=== PATIENT | female | born 1950 | race Caucasian/White ===

== ENCOUNTER 2016-09-24 17:48 | Emergency (ER) | payer MEDICARE, OTHER | END 2016-09-24 21:42 | disposition home or self-care (01) | LOC: FER 17:48 | DX: M25.552 Pain in left hip (principal); M25.551 Pain in right hip; E11.9 Type 2 diabetes mellitus without complications; I10 Essential (primary) hypertension; J45.909 Unspecified asthma, uncomplicated; F41.9 Anxiety disorder, unspecified; F32.9 Major depressive disorder, single episode, unspecified; Z87.442 Personal history of urinary calculi; Z88.0 Allergy status to penicillin; Z88.2 Allergy status to sulfonamides; Z88.4 Allergy status to anesthetic agent; Z88.5 Allergy status to narcotic agent; Z90.49 Acquired absence of other specified parts of digestive tract; Z90.89 Acquired absence of other organs; Z98.890 Other specified postprocedural states; W17.89XA Other fall from one level to another, initial encounter; Y92.009 Unspecified place in unspecified non-institutional (private) residence as the place of occurrence of the external cause | CPT/HCPCS: 73522; J2175 ==

== ENCOUNTER 2016-12-30 04:17 | Emergency (ER) | payer MEDICARE, OTHER ==
[2016-12-30 05:26] LABS: BASOPHIL 0.2 % (0-2); EOSINOPHIL 0.7 % (0-7); HCT 40.1 % (37.0-47.0); HGB 14.1 g/dl (12.5-16.0); MCH 29.3 pg (25.0-31.0); MCHC 35.2 g/dL (32.0-36.0); MCV 83.2 fL (78.0-100.0); MONOCYTE 8.8 % (0-12); MPV 9.3 fL (6.0-9.5); NEUTROPHIL 50.3 % (41-80); PLT 328 K/uL (150-400); RBC 4.82 M/uL (4.20-5.40); RDW 13.3 % (11.5-14.0); WBC 8.2 K/uL (4.0-10.5)
[2016-12-30 05:44] LABS: CKMB 1.14 ng/mL (0.97-4.94); TROPONIN T < 0.010 ng/mL
[2016-12-30 05:45] LABS: ALBUMIN 4.4 g/dL (3.4-4.8); BILIRUBIN - TOTAL 0.2 mg/dL (0.1-1.0); CREATININE 0.6 mg/dL (0.5-1.0); POTASSIUM 4.4 mmol/L (3.5-5.1); TOTAL PROTEIN 7.4 g/dL (6.4-8.3)
[2016-12-30 07:34] LABS: CREATININE 0.7 mg/dL (0.5-1.0); POTASSIUM 4.6 mmol/L (3.5-5.1)
[2016-12-30 08:04] LABS: BILIRUBIN NEGATIVE (NEGATIVE); BLOOD 3+ Ery/uL (NEGATIVE); COLOR YELLOW (YELLOW); GLUCOSE (U) 3+ mg/dL (NORMAL); KETONE (U) TRACE mg/dL (NEGATIVE); LEUKOCYTES 1+ Leu/uL (NEGATIVE); NITRITE NEGATIVE (NEGATIVE); PROTEIN 1+ mg/dL (NEGATIVE); UROBILINOGEN 0.2 mg/dL (0.2-1.0)
[2016-12-30 08:06] LABS: CLARITY HAZY (CLEAR)
[2016-12-30 08:08] LABS: BACTERIA TRACE
== END 2016-12-30 10:55 | disposition home or self-care (01) ==
LOC: FER 04:17
PROVIDERS: Emergency Medicine Emergency Medical Services
DX: E11.65 Type 2 diabetes mellitus with hyperglycemia (principal); N30.00 Acute cystitis without hematuria; R07.9 Chest pain, unspecified; I11.9 Hypertensive heart disease without heart failure; M19.90 Unspecified osteoarthritis, unspecified site; Z88.0 Allergy status to penicillin; Z88.2 Allergy status to sulfonamides; Z88.5 Allergy status to narcotic agent; Z88.8 Allergy status to other drugs, medicaments and biological substances; Z79.4 Long term (current) use of insulin; Z79.84 Long term (current) use of oral hypoglycemic drugs; Z79.899 Other long term (current) drug therapy; Z79.82 Long term (current) use of aspirin; Z79.1 Long term (current) use of non-steroidal anti-inflammatories (NSAID); Z87.442 Personal history of urinary calculi
CPT/HCPCS: 36415; 71010; 80048; 80053; 81001; 82550; 82553; 83036; 84484; 85025; 87088; 93005; 96372; J1885; J2405

== ENCOUNTER 2021-02-05 12:05 | Day surgery (SDCO) | payer MEDICARE, OTHER ==
[~2021-02-05] VITALS: Ht 152.4 cm; Wt 70.8 kg
[~2021-02-05 12:05] MED LIST: ABILIFY5 MG PO; ALLOPURINOL100 MG PO; ANTI-DIARRHEAL2 M1 PO; ASPIRIN EC81 MG PO; ATORVASTATIN CA40 MG PO; AZO BLADDER CO1 EACH PO; BACLOFEN 20MG T20 MG PO; BENADRYL25 MG PO; BONIVA 150MG T150 MG PO; BRILINTA60 MG PO; BUPROPION PO; BUSPIRONE HCL15 MG PO; CIPRO500 MG PO; COLACE100 MG PO; COZAAR 25MG TAB25 MG PO; COZAAR100 MG PO; COZAAR25 MG PO; CYMBALTA 30MG C30 MG PO; CYMBALTA60 MG PO; DILAUDID2 MG PO; DUONEB 2.5-0.5M1 AMP INH; FISH OIL 1,0001 EAC3 PO; GLUCOPHAGE850 MG PO; GLUCOSE4 GM PO; HAIR, SKIN & N1 EAC2 PO; HCTZ25 MG PO; IMODIUM2 MG PO; LANTUS **100 UNITS/ SC; LANTUS100 UNIT/1 SC; MAG-OXIDE 400M400 MG PO; METFORMIN HCL500 MG PO; MYRBETRIQ50 MG PO; NEXIUM40 MG PO; NORCO 5-325 TA1 EACH PO; NORVASC10 MG PO; NOVOLOG DO100 UNIT/M SC; PERCOCET 5-3251 EACH PO; PHENERGAN25 M1 PO; PLAVIX75 MG PO; POLY-IRON150 MG PO; SEROQUEL 25MG T25 MG PO; SINGULAIR10 MG PO; SKELAXIN800 M1 PO; SKELAXIN800 MG PO; TRIAMCINOLONE 080 GM TOP; VENTOLIN HFA IN18 GM INH; VIT B-12 PO; VIT D-3 PO; VOLTAREN **OUT50 MG PO; WELLBUTRIN XL300 MG PO; ZANAFLEX4 MG PO; ZOFRAN4 MG PO; ZOFRAN8 MG PO
[2021-02-05 13:21] LABS: BASOPHIL 0.4 % (0-2); EOSINOPHIL 0.4 % (0-7); HCT 36.5 % (37.0-47.0); HGB 11.5 g/dl (12.5-16.0); LYMPHOCYTE 19.5 % (15-48); MCH 25.4 pg (25.0-31.0); MCHC 31.5 g/dL (32.0-36.0); MCV 80.6 fL (78.0-100.0); MONOCYTE 6.2 % (0-12); MPV 9.6 fL (6.0-9.5); NEUTROPHIL 72.7 % (41-80); NRBC 0; PLT 306 K/uL (150-400); RBC 4.53 M/uL (4.20-5.40); RDW 14.3 % (11.5-14.0); WBC 10.1 K/uL (4.0-10.5)
[2021-02-05 13:40] LABS: INR 1.01 (0.9-1.2); PROTHROMBIN TIME 12.7 SECONDS (11.8-13.4); PTT 24.7 SECONDS (24.4-34.7)
[2021-02-05 13:46] LABS: ALBUMIN 3.4 g/dL (3.4-5.0); BILIRUBIN - TOTAL 0.3 mg/dL (0.2-1.0); BUN/CREAT RATIO (CALC) 21.7 RATIO; CREATININE 0.83 mg/dL (0.51-0.95); GLOBULIN (CALCULATION) 4.1 g/dL; POTASSIUM 3.4 mmol/L (3.5-5.1); TOTAL PROTEIN 7.5 g/dL (6.4-8.2)
[2021-02-05 13:53] LABS: CKMB <0.5 ng/mL (0.0-3.6)
[2021-02-05 14:33] LABS: BILIRUBIN NEGATIVE (NEGATIVE); BLOOD NEGATIVE Ery/uL (NEGATIVE); CLARITY CLEAR (CLEAR); COLOR YELLOW (YELLOW); GLUCOSE (U) NORMAL (NORMAL); LEUKOCYTES TRACE Leu/uL (NEGATIVE); NITRITE NEGATIVE (NEGATIVE); PROTEIN NEGATIVE (NEGATIVE); SPECIFIC GRAVITY >=1.030 (1.001-1.030); UROBILINOGEN 0.2 mg/dL (0.2-1.0); pH 5.5 (5.0-9.0)
[2021-02-05] MEDS ORDERED: METFORMIN HCL500 MG PO (17:09)
--- NOTE | 2021-02-06 04:05 | NUR ---
0255 PT STATES HER DEXCOM GLUCOSE MONITORING SYSTEMS SHOWS HER GLUCOSE IS 57. PT GIVEN APPLE JUICE, HAM SANDWICH . FSBG 69 ACCORDING TO HOSPITAL MACHINE.
[2021-02-06 06:24] LABS: BASOPHIL 0.3 % (0-2); EOSINOPHIL 0.9 % (0-7); HCT 35.1 % (37.0-47.0); HGB 10.9 g/dl (12.5-16.0); LYMPHOCYTE 20.9 % (15-48); MCH 25.6 pg (25.0-31.0); MCHC 31.1 g/dL (32.0-36.0); MCV 82.4 fL (78.0-100.0); MONOCYTE 7.7 % (0-12); NEUTROPHIL 69.5 % (41-80); NRBC 0; PLT 299 K/uL (150-400); RBC 4.26 M/uL (4.20-5.40); RDW 14.3 % (11.5-14.0); WBC 9.8 K/uL (4.0-10.5)
[2021-02-06 07:12] LABS: BUN/CREAT RATIO (CALC) 21.4 RATIO; CREATININE 0.7 mg/dL (0.51-0.95); POTASSIUM 3.5 mmol/L (3.5-5.1)
[2021-02-07] MEDS ORDERED: LEVAQUIN250 MG PO (09:06)
--- NOTE | 2021-02-07 12:58 | NUR ---
PT IS RECOMMENDING OUTPT VESTIBULAR THERAPY. PT. REQUESTS [facility]ARG[facility]ITA CROWELL TO [facility]. THEY ARE GOING TO HAVE TO WORK PT IN AND WILL CALL HER WITH AN APPT. PT. WAS IN AGREEMENT. GAVE PT. PHONE NUMBER FOR [facility] IN CASE [facility] HAS NOT CALLED HER BY TOMORROW. PT. HAS A ROLLING WALKER. PT. SIGNED CHOICE FORM
--- NOTE | 2021-02-07 13:58 | NUR ---
DISCUSSED DISCHARGE INSTRUCTIONS WITH PATIENT AND . IV REMOVED, PRESSURE APPLIED. INFORMED PATIENT ON FOLLOW UP APPOINTMENTS MADE AND ONES NEEDING TO BE MADE. PATIENT IN STABLE CONDITION.
[2021-02-14] MEDS ORDERED: CIPRO500 MG PO (05:46)
[2021-02-14] MEDS ORDERED: NOVOLOG100 UNIT/1 SC (05:57)
[2021-02-14] MEDS ORDERED: NORCO 5-325 TA1 EACH PO (07:12)
[2021-02-15] MEDS ORDERED: XARELTO10 MG PO (10:24)
[2021-02-15] MEDS ORDERED: FEOSOL325 MG PO (10:24)
[2021-02-15] MEDS ORDERED: ZOFRAN4 M1 PO (10:28)
== END 2021-02-07 13:55 | disposition home or self-care (01) ==
LOC: FER 12:05 → FMS 15:56
PROVIDERS: Emergency Medicine; Internal Medicine; ADMIT Allergy & Immunology Allergy
DX: R42 Dizziness and giddiness (principal); N39.0 Urinary tract infection, site not specified; I69.311 Memory deficit following cerebral infarction; I10 Essential (primary) hypertension; E78.5 Hyperlipidemia, unspecified; E11.9 Type 2 diabetes mellitus without complications; I25.10 Atherosclerotic heart disease of native coronary artery without angina pectoris; J44.9 Chronic obstructive pulmonary disease, unspecified; M19.90 Unspecified osteoarthritis, unspecified site; K21.9 Gastro-esophageal reflux disease without esophagitis; I71.2 Thoracic aortic aneurysm, without rupture; M10.9 Gout, unspecified; Z87.891 Personal history of nicotine dependence; Z79.02 Long term (current) use of antithrombotics/antiplatelets; Z79.2 Long term (current) use of antibiotics; Z79.4 Long term (current) use of insulin; Z79.899 Other long term (current) drug therapy; Z88.0 Allergy status to penicillin; Z88.2 Allergy status to sulfonamides; Z88.5 Allergy status to narcotic agent; Z88.6 Allergy status to analgesic agent; Z20.822 Contact with and (suspected) exposure to COVID-19
CPT/HCPCS: 36415; 70450; 71045; 80048; 80053; 80061; 81001; 82550; 82553; 82962; 83036; 83874; 84145; 84484; 85025; 85610; 85730; 87076; 87088; 87186; 93005; 97161; 97530-GP; G0378; J0696; J2405; J7030; U0002

== ENCOUNTER 2021-05-11 17:17 | Emergency (ER) | payer MEDICARE, OTHER ==
[~2021-05-11 17:17] MED LIST changes: +FEOSOL325 MG PO; +LEVAQUIN250 MG PO; +NOVOLOG100 UNIT/1 SC; +XARELTO10 MG PO; +ZOFRAN4 M1 PO
[2021-05-11 18:36] LABS: BASOPHIL 0.3 % (0-2); EOSINOPHIL 0.3 % (0-7); HCT 41.2 % (37.0-47.0); HGB 12.8 g/dl (12.5-16.0); MCH 24.1 pg (25.0-31.0); MCHC 31.1 g/dL (32.0-36.0); MCV 77.4 fL (78.0-100.0); MONOCYTE 8.2 % (0-12); NEUTROPHIL 68.5 % (41-80); NRBC 0; PLT 321 K/uL (150-400); RBC 5.32 M/uL (4.20-5.40); RDW 16.1 % (11.5-14.0); WBC 11.9 K/uL (4.0-10.5)
[2021-05-11 18:50] LABS: INR 0.98 (0.9-1.2); PROTHROMBIN TIME 12.4 SECONDS (11.8-13.4)
[2021-05-11 19:01] LABS: PRO-BNP 68 pg/mL (<125)
[2021-05-11 19:11] LABS: ALBUMIN 3.7 g/dL (3.4-5.0); BILIRUBIN - TOTAL 0.5 mg/dL (0.2-1.0); CREATININE 0.5 mg/dL (0.51-0.95); GLOBULIN (CALCULATION) 4.3 g/dL; POTASSIUM 5.1 mmol/L (3.5-5.1)
[2021-05-11 19:50] LABS: BILIRUBIN NEGATIVE (NEGATIVE); BLOOD TRACE-INTACT Ery/uL (NEGATIVE); CLARITY CLEAR (CLEAR); COLOR YELLOW (YELLOW); GLUCOSE (U) NORMAL (NORMAL); LEUKOCYTES 1+ Leu/uL (NEGATIVE); NITRITE POSITIVE (NEGATIVE); PROTEIN 1+ mg/dL (NEGATIVE); SPECIFIC GRAVITY 1.025 (1.001-1.030); UROBILINOGEN 0.2 mg/dL (0.2-1.0); pH 5.5 (5.0-9.0)
[2021-05-11 20:07] LABS: AMORPHOUS URATES CRYSTALS LARGE; BACTERIA 4+
[2021-05-11] MEDS ORDERED: VIBRAMYCIN100 MG PO (21:40)
[2021-05-11] MEDS ORDERED: NORCO 5-325 TA1 EACH PO (21:40)
== END 2021-05-11 22:02 | disposition home or self-care (01) ==
LOC: FER 17:17
PROVIDERS: Emergency Medicine
DX: S20.212A Contusion of left front wall of thorax, initial encounter (principal); S30.1XXA Contusion of abdominal wall, initial encounter; N39.0 Urinary tract infection, site not specified; I10 Essential (primary) hypertension; Z86.73 Personal history of transient ischemic attack (TIA), and cerebral infarction without residual deficits; Z88.2 Allergy status to sulfonamides; Z88.6 Allergy status to analgesic agent; Z88.4 Allergy status to anesthetic agent; Z88.5 Allergy status to narcotic agent; Z91.041 Radiographic dye allergy status; W10.9XXA Fall (on) (from) unspecified stairs and steps, initial encounter; Y92.009 Unspecified place in unspecified non-institutional (private) residence as the place of occurrence of the external cause
CPT/HCPCS: 36415; 70450; 71250; 73502; 73560; 80053; 81001; 82550; 83690; 83880; 84484; 85025; 85610; 85730; 93005; J1170; J2405

== ENCOUNTER 2021-06-17 15:36 | Emergency (ER) | payer MEDICARE, OTHER | END 2021-06-17 19:20 | disposition home or self-care (01) | LOC: FER 15:36 | DX: U07.1 COVID-19 (principal); I10 Essential (primary) hypertension; E11.9 Type 2 diabetes mellitus without complications; Z23 Encounter for immunization; Z86.73 Personal history of transient ischemic attack (TIA), and cerebral infarction without residual deficits; Z88.0 Allergy status to penicillin; Z88.2 Allergy status to sulfonamides; Z88.5 Allergy status to narcotic agent ==

== ENCOUNTER 2021-06-28 09:05 | Emergency (ER) | payer MEDICARE, OTHER ==
[~2021-06-28 09:05] MED LIST changes: +VIBRAMYCIN100 MG PO
== END 2021-06-28 15:13 | disposition home or self-care (01) ==
LOC: FER 09:05
DX: U07.1 COVID-19 (principal); I10 Essential (primary) hypertension; E11.9 Type 2 diabetes mellitus without complications; Z86.73 Personal history of transient ischemic attack (TIA), and cerebral infarction without residual deficits; Z88.0 Allergy status to penicillin; Z88.5 Allergy status to narcotic agent; Z88.6 Allergy status to analgesic agent; Z88.4 Allergy status to anesthetic agent; Z88.2 Allergy status to sulfonamides; Z88.8 Allergy status to other drugs, medicaments and biological substances; Z79.02 Long term (current) use of antithrombotics/antiplatelets
CPT/HCPCS: 99283

== ENCOUNTER 2021-07-09 15:12 | Emergency (ER) | payer MEDICARE, OTHER ==
[2021-07-09 19:06] LABS: BASOPHIL 0.4 % (0-2); EOSINOPHIL 1.5 % (0-7); HCT 39.1 % (37.0-47.0); HGB 11.8 g/dl (12.5-16.0); LYMPHOCYTE 29.4 % (15-48); MCH 23.9 pg (25.0-31.0); MCHC 30.2 g/dL (32.0-36.0); MCV 79.1 fL (78.0-100.0); MONOCYTE 8.6 % (0-12); MPV 8.8 fL (6.0-9.5); NEUTROPHIL 59.6 % (41-80); NRBC 0; PLT 285 K/uL (150-400); RBC 4.94 M/uL (4.20-5.40); RDW 18.2 % (11.5-14.0); WBC 8.6 K/uL (4.0-10.5)
[2021-07-09 19:38] LABS: ALBUMIN 3.5 g/dL (3.4-5.0); BILIRUBIN - TOTAL 0.4 mg/dL (0.2-1.0); BUN/CREAT RATIO (CALC) 24.1 RATIO; C-REACTIVE PROTEIN 0.9 mg/dL (<=0.90); CREATININE 0.79 mg/dL (0.51-0.95); GLOBULIN (CALCULATION) 3.9 g/dL; POTASSIUM 4.2 mmol/L (3.5-5.1); TOTAL PROTEIN 7.4 g/dL (6.4-8.2)
[2021-07-09 20:04] LABS: BILIRUBIN NEGATIVE (NEGATIVE); BLOOD NEGATIVE Ery/uL (NEGATIVE); CLARITY CLEAR (CLEAR); COLOR YELLOW (YELLOW); GLUCOSE (U) NORMAL (NORMAL); LEUKOCYTES 1+ Leu/uL (NEGATIVE); NITRITE POSITIVE (NEGATIVE); PROTEIN TRACE (LOW) mg/dL (NEGATIVE); SPECIFIC GRAVITY 1.025 (1.001-1.030); UROBILINOGEN 0.2 mg/dL (0.2-1.0)
[2021-07-09 20:12] LABS: ECSTASY (MDMA) NEGATIVE (NEGATIVE); MARIJUANA (THC) NEGATIVE (NEGATIVE); METHADONE NEGATIVE (NEGATIVE); OPIATES POSITIVE (NEGATIVE)
[2021-07-09 20:13] LABS: AMPHETAMINES NEGATIVE (NEGATIVE); BARBITURATES NEGATIVE (NEGATIVE); OXYCODONE NEGATIVE (NEGATIVE)
[2021-07-09 20:15] LABS: BACTERIA 4+
[2021-07-09] MEDS ORDERED: CIPRO500 MG PO (21:14)
== END 2021-07-09 22:00 | disposition home or self-care (01) ==
LOC: FER 15:12
PROVIDERS: Emergency Medicine; Nurse Practitioner Family
DX: N39.0 Urinary tract infection, site not specified (principal); R53.1 Weakness; R53.81 Other malaise; R53.83 Other fatigue; I10 Essential (primary) hypertension; E11.9 Type 2 diabetes mellitus without complications; J44.9 Chronic obstructive pulmonary disease, unspecified; Z86.73 Personal history of transient ischemic attack (TIA), and cerebral infarction without residual deficits; Z88.6 Allergy status to analgesic agent; Z88.0 Allergy status to penicillin; Z88.2 Allergy status to sulfonamides; Z88.4 Allergy status to anesthetic agent; Z88.8 Allergy status to other drugs, medicaments and biological substances; Z91.041 Radiographic dye allergy status
CPT/HCPCS: 36415; 70450; 71045; 80053; 80305; 81001; 82728; 83880; 84145; 84484; 85025; 86140; 87076; 87088; 87186; 93005; J7030

== ENCOUNTER 2022-03-07 15:05 | Emergency (ER) | payer MEDICARE, OTHER ==
[2022-03-07] MEDS ORDERED: NORCO 5-325 TA1 EACH PO (19:25)
== END 2022-03-07 18:39 | disposition home or self-care (01) ==
LOC: FER 15:05
DX: S20.212A Contusion of left front wall of thorax, initial encounter (principal); S80.02XA Contusion of left knee, initial encounter; E11.9 Type 2 diabetes mellitus without complications; Z86.73 Personal history of transient ischemic attack (TIA), and cerebral infarction without residual deficits; Z79.02 Long term (current) use of antithrombotics/antiplatelets; Z88.5 Allergy status to narcotic agent; Z88.2 Allergy status to sulfonamides; Z91.040 Latex allergy status; W19.XXXA Unspecified fall, initial encounter; Y92.009 Unspecified place in unspecified non-institutional (private) residence as the place of occurrence of the external cause
CPT/HCPCS: 71250; 73564